=== PATIENT | female | born 1975 | race Caucasian/White ===

== ENCOUNTER 2019-02-19 19:18 | Emergency (ER) | payer OTHER ==
[~2019-02-19] VITALS: Ht 157.5 cm; Wt 70.0 kg
[2019-02-19] MEDS ORDERED: VOLTAREN - GENE75 MG PO (20:24)
[2019-02-19 20:30] VITALS: BP 132/82
== END 2019-02-19 20:30 | disposition home or self-care (01) ==
LOC: ED 19:18
DX: S53.401A Unspecified sprain of right elbow, initial encounter (principal); X50.1XXA Overexertion from prolonged static or awkward postures, initial encounter; Y93.E2 Activity, laundry; Y92.009 Unspecified place in unspecified non-institutional (private) residence as the place of occurrence of the external cause

== ENCOUNTER 2020-09-12 22:35 | Emergency (ER) | payer SELFPAY ==
[~2020-09-12] VITALS: Ht 157.5 cm; Wt 81.0 kg
[~2020-09-12 22:35] MED LIST: VOLTAREN - GENE75 MG PO
[2020-09-13] MEDS ORDERED: PERCOCET 5/325M1 TAB PO (01:00)
[2020-09-13 01:20] VITALS: BP 123/69
[2020-09-13] MEDS ORDERED: ZOLPIDEM10 M1 PO (04:06)
[2020-09-13] MEDS ORDERED: SERTRALINE HCL50 MG PO (04:07)
[2020-09-13] MEDS ORDERED: CLONAZEPAM1 MG PO (04:07)
[2020-09-13] MEDS ORDERED: ALPRAZOLAM0.5 MG PO (04:10)
== END 2020-09-13 01:20 | disposition home or self-care (01) | DRG 605 ==
LOC: ED 22:35
DX: S30.0XXA Contusion of lower back and pelvis, initial encounter (principal); F17.200 Nicotine dependence, unspecified, uncomplicated; W10.9XXA Fall (on) (from) unspecified stairs and steps, initial encounter; Y92.009 Unspecified place in unspecified non-institutional (private) residence as the place of occurrence of the external cause

== ENCOUNTER 2020-10-16 01:42 | Emergency (ER) | payer OTHER ==
[~2020-10-16 01:42] MED LIST changes: +ALPRAZOLAM0.5 MG PO; +CLONAZEPAM1 MG PO; +PERCOCET 5/325M1 TAB PO; +SERTRALINE HCL50 MG PO; +ZOLPIDEM10 M1 PO
[2020-10-16 02:13] LABS: HEMOGLOBIN 15.7 g/dl (12.0-16.0); IMMATURE GRANULOCYTES 0.4 % (0.0-5.0); MEAN CELL VOLUME 86.8 fL CALC (80.0-100.0); MEAN CORPUSCULAR HGB 29.2 pG CALC (26.0-32.0); MEAN CORPUSCULAR HGB CONC 33.6 g/dL CAL (32.0-36.0); NEUT# 13.04 thou/uL (2.00-7.15); RED BLOOD COUNT 5.38 mill/uL (4.20-5.60); RED CELL DISTRI WIDTH 12.3 % (11.5-15.5)
[2020-10-16 02:16] LABS: HEMATOCRIT 46.7 % (37.0-47.0)
[2020-10-16 02:40] LABS: ALBUMIN 5.5 g/dL (3.2-5.0); ALKALINE PHOSPHATASE 119 u/l (38-126); AMYLASE 60 u/l (30-110); ANION GAP 20 (6-22 (CALC)); BILIRUBIN, TOTAL 0.8 mg/dL (0.0-1.4); BUN 22 mg/dL (7-17); BUN/CREATININE RATIO 22 (12-20 (CALC)); CARBON DIOXIDE 22 mmol/l (22-30); CHLORIDE 98 mmol/l (95-108); GFR > 60 ML/MIN (>=60 (CALC)); GFR FOR AFR.AMER. > 60 ML/MIN (>=60 (CALC)); LIPASE 41 u/l (23-300); POTASSIUM 4.1 mmol/l (3.5-5.1); SGOT/AST 40 u/l (14-36); SODIUM 136 mmol/l (137-146); TOTAL PROTEIN 9.4 g/dL (6.3-8.2)
[2020-10-16] MEDS ORDERED: TIGAN300 MG PO (05:06)
[2020-10-16] MEDS ORDERED: LOMOTIL2.5 MG PO (05:06)
[2020-10-16 05:41] VITALS: BP 145/70
== END 2020-10-16 06:00 | disposition home or self-care (01) ==
LOC: ED 01:42
PROVIDERS: Family Medicine
DX: A08.4 Viral intestinal infection, unspecified (principal); F41.9 Anxiety disorder, unspecified; F17.210 Nicotine dependence, cigarettes, uncomplicated; Z98.84 Bariatric surgery status
CPT/HCPCS: Q9967

== ENCOUNTER 2020-12-06 14:44 | Emergency (ER) | payer OTHER ==
[~2020-12-06] VITALS: Ht 157.5 cm; Wt 90.0 kg
[~2020-12-06 14:44] MED LIST changes: +LOMOTIL2.5 MG PO; +TIGAN300 MG PO
[2020-12-06 17:27] VITALS: BP 127/77
[2020-12-06] MEDS ORDERED: TRILEPTAL150 M1 PO (17:33)
== END 2020-12-06 17:27 | disposition home or self-care (01) ==
LOC: ED 14:44
DX: S82.891A Other fracture of right lower leg, initial encounter for closed fracture (principal); F41.9 Anxiety disorder, unspecified; F17.200 Nicotine dependence, unspecified, uncomplicated; W10.9XXA Fall (on) (from) unspecified stairs and steps, initial encounter; Y92.009 Unspecified place in unspecified non-institutional (private) residence as the place of occurrence of the external cause

== ENCOUNTER 2021-01-29 10:46 | Emergency (ER) | payer OTHER ==
[~2021-01-29] VITALS: Ht 157.5 cm; Wt 77.0 kg
[~2021-01-29 10:46] MED LIST changes: +TRILEPTAL150 M1 PO
[2021-01-29 12:30] VITALS: BP 124/79
== END 2021-01-29 12:31 | disposition home or self-care (01) ==
LOC: ED 10:46
DX: S93.401A Sprain of unspecified ligament of right ankle, initial encounter (principal); F41.9 Anxiety disorder, unspecified; F17.210 Nicotine dependence, cigarettes, uncomplicated; V58.4XXA Person boarding or alighting a pick-up truck or van injured in noncollision transport accident, initial encounter

== ENCOUNTER 2022-09-12 11:15 | Emergency (ER) | payer OTHER ==
[~2022-09-12] VITALS: Ht 157.5 cm; Wt 73.6 kg
[2022-09-12 11:48] VITALS: BP 135/86
[2022-09-12 12:20] VITALS: BP 134/89
[2022-09-12] MEDS ORDERED: NAPROXEN500 MG PO (12:23)
[2022-09-12] MEDS ORDERED: DECADRON4 MG PO (12:23)
[2022-09-12] MEDS ORDERED: TRAMADOL HYDROC50 M1 PO (12:23)
[2022-09-12] MEDS ORDERED: ZOFRAN4 MG/TAB PO (12:24)
[2022-09-12 12:30] VITALS: BP 149/88
[2022-09-12 12:45] VITALS: BP 110/64
[2022-09-12 13:00] VITALS: BP 117/73
[2022-09-12 14:17] VITALS: BP 117/73
== END 2022-09-12 14:22 | disposition home or self-care (01) ==
LOC: ED 11:15
DX: M54.50 Low back pain, unspecified (principal); F41.9 Anxiety disorder, unspecified; F17.210 Nicotine dependence, cigarettes, uncomplicated